=== PATIENT | male | born 1975 | race Caucasian/White ===

== ENCOUNTER 2017-04-01 18:02 | Emergency (ER) | payer OTHER ==
[~2017-04-01] VITALS: Ht 190.5 cm; Wt 83.7 kg
[2017-04-01 18:52] LABS: HEMATOCRIT 46.3 % (38.0-50.0); MCH 28.7 PG (29.0-34.0); MCV 82.1 FL (86-99); MEAN PLAT.VOLUME 9.8 uM^3 (9.0-12.4); PLATELET COUNT 221 K/uL (156-360); RBC DIS.WIDTH-CV 11.7 % (11.8-14.6); RBC DIS.WIDTH-SD 35.5 % (39-53); RED BLOOD COUNT 5.64 M/uL (4.00-5.50)
[2017-04-01 19:00] LABS: D-DIMER ELISA < 150.00 ng/mLDDU (<230)
[2017-04-01 19:11] LABS: CHLORIDE 105 mEq/L (99-109); POTASSIUM 3.9 mEq/L (3.7-5.4); SODIUM 139 mEq/L (136-147)
[2017-04-01 19:12] LABS: GLUCOSE 106 mg/dL (70-99)
[2017-04-01 19:14] LABS: ANION GAP 11 MEQ/L (2-14)
[2017-04-01 19:16] LABS: GFR ESTIMATE (CALCULATED) > 59 mL/min/
[2017-04-01 19:17] LABS: UREA NITROGEN (BUN) 10 mg/dL (9-23)
[2017-04-01 19:27] LABS: TROP-I INTERPRETATION NEGATIVE; TROPONIN-I < 0.01 ng/mL (0.0-0.30)
[2017-04-01 21:31] VITALS: BP 144/82
== END 2017-04-01 21:32 | disposition home or self-care (01) ==
LOC: EME 18:02
PROVIDERS: Emergency Medicine
DX: R07.9 Chest pain, unspecified (principal); F41.9 Anxiety disorder, unspecified; Z82.49 Family history of ischemic heart disease and other diseases of the circulatory system
CPT/HCPCS: 71020; 80048; 84484; 85027; 85379; 93005; 99281; 99285